=== PATIENT | female | born 1955 | race Caucasian/White ===

== ENCOUNTER → 2016-12-06 | Outpatient (CLI) | payer OTHER ==
[~2016-12-06] MED LIST: FLAXSEED OIL1000 M2 PO; FLEXERIL PO; MULTIVITAMINS1 EAC7 PO; NORCO 5-325 TA1 EACH PO; NORVASC 2.5 MG2.5 MG PO; VENTOLIN HFA 1818 GM INH; ZPAK PO
== END ==
LOC: RAD 13:13
DX: Z12.31 Encounter for screening mammogram for malignant neoplasm of breast (principal)